=== PATIENT | female | born 1930 | race Caucasian/White ===

== ENCOUNTER 2016-10-25 05:11 | Emergency (ER) | payer OTHER, BC ==
[~2016-10-25] VITALS: Ht 152.4 cm; Wt 58.7 kg
[~2016-10-25 05:11] MED LIST: ATIVAN1 MG PO; AUGMENTIN875 MG PO; AZOPT 1% O200 DROP/1 RIGHT EYE; CITALOPRAM HBR20 MG; LEVAQUIN750 MG PO; MELOXICAM7.5 MG; METOPROLOL SUCC50 MG; PREVACID15 MG PO; REGLAN10 MG; SERTRALINE HCL25 MG PO; VITAMIN B-6100 MG PO; VITAMIN D250000 UNIT PO; VITAMIN D31000 UNIT PO
[2016-10-25 06:13] LABS: EOSINOPHIL (%) 0.9 % (0-5); EOSINOPHIL COUNT 0.1 K/uL (0-0.3); HEMATOCRIT 37.6 % (36.0-46.0); IMMATURE GRANULOCYTE (%) 0.4 % (0.0-0.7); INSTRUMENT ABS NEUTROPHIL CT 4.4 K/uL; LYMPHOCYTE COUNT 2.6 K/uL (1.0-2.8); MCHC 33.5 G/DL (30.0-36.0); MCV 92.4 FL (83-99); MEAN PLAT.VOLUME 9.6 uM^3 (9.5-12.4); MONOCYTE (%) 11.9 % (3-12); NEUTROPHIL (%) 54.6 % (45-76); NEUTROPHIL COUNT 4.4 K/uL (1.8-6.4); PLATELET COUNT 276 K/uL (156-360); RBC DIS.WIDTH-CV 12.9 % (11.8-14.6); RBC DIS.WIDTH-SD 43.9 % (39-53); RED BLOOD COUNT 4.07 M/uL (3.80-5.20)
[2016-10-25 06:19] LABS: CHLORIDE 99 mEq/L (99-109); POTASSIUM 4.2 mEq/L (3.7-5.4); SODIUM 134 mEq/L (136-147)
[2016-10-25 06:21] LABS: GLUCOSE 98 mg/dL (70-99)
[2016-10-25 06:23] LABS: ANION GAP 10 MEQ/L (2-14); TOTAL BILIRUBIN 0.8 mg/dL (0.0-1.0)
[2016-10-25 06:25] LABS: ALKALINE PHOSPHATASE 81 IU/L (3-129); GFR ESTIMATE (CALCULATED) > 59 mL/min/
[2016-10-25 06:26] LABS: UREA NITROGEN (BUN) 13 mg/dL (9-23)
[2016-10-25 06:28] LABS: LIPASE 25 U/L (1.0-51.0)
[2016-10-25] MEDS ORDERED: KRISTALOSE10 GM PO (06:45)
[2016-10-25] MEDS ORDERED: FLAGYL500 MG PO (06:45)
[2016-10-25] MEDS ORDERED: CIPRO500 MG PO (06:45)
[2016-10-25 06:59] VITALS: BP 182/88
== END 2016-10-25 07:10 | disposition home or self-care (01) ==
LOC: EME 05:11
PROVIDERS: Emergency Medicine
DX: K59.00 Constipation, unspecified (principal); K52.9 Noninfective gastroenteritis and colitis, unspecified; K64.4 Residual hemorrhoidal skin tags; F03.90 Unspecified dementia, unspecified severity, without behavioral disturbance, psychotic disturbance, mood disturbance, and anxiety; H40.9 Unspecified glaucoma; I10 Essential (primary) hypertension; K21.9 Gastro-esophageal reflux disease without esophagitis; Z86.73 Personal history of transient ischemic attack (TIA), and cerebral infarction without residual deficits; Z87.891 Personal history of nicotine dependence
CPT/HCPCS: 74176; 80053; 83690; 85025; 99281; 99283

== ENCOUNTER 2016-11-01 04:47 | Emergency (ER) | payer OTHER, BC ==
[~2016-11-01] VITALS: Ht 152.4 cm; Wt 58.8 kg
[~2016-11-01 04:47] MED LIST changes: +CIPRO500 MG PO; +FLAGYL500 MG PO; +KRISTALOSE10 GM PO
[2016-11-01 05:53] LABS: MCH 31.1 PG (29.0-34.0); MCHC 33.1 G/DL (30.0-36.0); MEAN PLAT.VOLUME 9.3 uM^3 (9.5-12.4); PLATELET COUNT 319 K/uL (156-360); RBC DIS.WIDTH-CV 13.6 % (11.8-14.6); RBC DIS.WIDTH-SD 46.7 % (39-53); RED BLOOD COUNT 4.15 M/uL (3.80-5.20); WHITE BLOOD COUNT 8.7 K/uL (4.1-10.2)
[2016-11-01 06:03] LABS: CHLORIDE 108 mEq/L (99-109); POTASSIUM 4.7 mEq/L (3.7-5.4); SODIUM 137 mEq/L (136-147)
[2016-11-01 06:05] LABS: GLUCOSE 77 mg/dL (70-99)
[2016-11-01 06:06] LABS: ANION GAP 7 MEQ/L (2-14)
[2016-11-01 06:09] LABS: ALKALINE PHOSPHATASE 75 IU/L (3-129); GFR ESTIMATE (CALCULATED) 56 mL/min/
[2016-11-01 06:10] LABS: UREA NITROGEN (BUN) 16 mg/dL (9-23)
[2016-11-01 06:11] LABS: TOTAL BILIRUBIN 0.4 mg/dL (0.0-1.0)
[2016-11-01 06:12] LABS: LIPASE 40 U/L (1.0-51.0)
[2016-11-01 07:23] VITALS: BP 165/71
== END 2016-11-01 07:23 | disposition home or self-care (01) ==
LOC: EME 04:47
PROVIDERS: Emergency Medicine
DX: R19.7 Diarrhea, unspecified (principal); I11.0 Hypertensive heart disease with heart failure; I50.9 Heart failure, unspecified; K21.9 Gastro-esophageal reflux disease without esophagitis; F03.90 Unspecified dementia, unspecified severity, without behavioral disturbance, psychotic disturbance, mood disturbance, and anxiety; H40.9 Unspecified glaucoma; F41.9 Anxiety disorder, unspecified; Z86.73 Personal history of transient ischemic attack (TIA), and cerebral infarction without residual deficits; Z90.49 Acquired absence of other specified parts of digestive tract; Z87.891 Personal history of nicotine dependence
CPT/HCPCS: 74022; 74176; 80053; 81003; 83605; 83690; 85027; 99281; 99284; J7030

== ENCOUNTER 2016-12-22 00:15 | Emergency (ER) | payer OTHER, BC ==
[~2016-12-22] VITALS: Ht 152.4 cm; Wt 57.9 kg
[2016-12-22 02:09] LABS: EOSINOPHIL (%) 0.9 % (0-5); EOSINOPHIL COUNT 0.1 K/uL (0-0.3); HEMATOCRIT 38.9 % (36.0-46.0); IMMATURE GRANULOCYTE (%) 0.1 % (0.0-0.7); INSTRUMENT ABS NEUTROPHIL CT 3.5 K/uL; LYMPHOCYTE COUNT 2.3 K/uL (1.0-2.8); MCHC 33.4 G/DL (30.0-36.0); MCV 92.8 FL (83-99); MEAN PLAT.VOLUME 9.2 uM^3 (9.5-12.4); MONOCYTE (%) 12.3 % (3-12); MONOCYTE COUNT 0.8 K/uL (0-0.8); NEUTROPHIL (%) 52.3 % (45-76); NEUTROPHIL COUNT 3.5 K/uL (1.8-6.4); PLATELET COUNT 289 K/uL (156-360); RBC DIS.WIDTH-CV 12.9 % (11.8-14.6); RBC DIS.WIDTH-SD 43.8 % (39-53); RED BLOOD COUNT 4.19 M/uL (3.80-5.20); WHITE BLOOD COUNT 6.7 K/uL (4.1-10.2)
[2016-12-22 02:14] LABS: ADD MIUA? NO; BILIRUBIN NEGATIVE; BLOOD NEGATIVE; COLOR STRAW ((YELLOW)); GLUCOSE (STRIP) NEGATIVE; KETONES NEGATIVE; LEUKOCYTES NEGATIVE; NITRITE NEGATIVE; PROTEIN (STRIP) NEGATIVE; SPECIFIC GRAVITY 1.005 (1.000-1.030); UCUL ADDED? NO; UROBILINOGEN 0.2 MG/DL (0.2-1.0)
[2016-12-22 02:17] LABS: CHLORIDE 104 mEq/L (99-109); POTASSIUM 4.6 mEq/L (3.7-5.4); SODIUM 137 mEq/L (136-147)
[2016-12-22 02:19] LABS: GLUCOSE 99 mg/dL (70-99)
[2016-12-22 02:20] LABS: ANION GAP 9 MEQ/L (2-14)
[2016-12-22 02:21] LABS: TOTAL BILIRUBIN 0.8 mg/dL (0.0-1.0)
[2016-12-22 02:22] LABS: ALKALINE PHOSPHATASE 79 IU/L (3-129)
[2016-12-22 02:23] LABS: GFR ESTIMATE (CALCULATED) > 59 mL/min/
[2016-12-22 02:24] LABS: UREA NITROGEN (BUN) 14 mg/dL (9-23)
[2016-12-22 02:26] LABS: LIPASE 29 U/L (1.0-51.0)
[2016-12-22 04:30] VITALS: BP 170/71
== END 2016-12-22 04:33 | disposition home or self-care (01) ==
LOC: EME 00:15
PROVIDERS: Emergency Medicine
DX: R19.7 Diarrhea, unspecified (principal); R10.9 Unspecified abdominal pain; I10 Essential (primary) hypertension; K21.9 Gastro-esophageal reflux disease without esophagitis; F03.90 Unspecified dementia, unspecified severity, without behavioral disturbance, psychotic disturbance, mood disturbance, and anxiety; F41.9 Anxiety disorder, unspecified; Z87.891 Personal history of nicotine dependence; Z86.73 Personal history of transient ischemic attack (TIA), and cerebral infarction without residual deficits
CPT/HCPCS: 74177; 80053; 81003; 83690; 85025; 99281; 99285

== ENCOUNTER 2017-05-12 10:14 | Emergency (ER) | payer OTHER, BC ==
[~2017-05-12] VITALS: Ht 157.5 cm; Wt 60.3 kg
[2017-05-12 11:27] LABS: HEMATOCRIT 38.4 % (36.0-46.0); HEMOGLOBIN 13.4 G/DL (11.9-15.5); MCH 31.8 PG (29.0-34.0); MCHC 34.9 G/DL (30.0-36.0); MCV 91.2 FL (83-99); PLATELET COUNT 341 K/uL (156-360); RBC DIS.WIDTH-CV 12.9 % (11.8-14.6); RBC DIS.WIDTH-SD 42.4 % (39-53); RED BLOOD COUNT 4.21 M/uL (3.80-5.20); WHITE BLOOD COUNT 17.6 K/uL (4.1-10.2)
[2017-05-12 11:36] LABS: CHLORIDE 99 mEq/L (99-109); POTASSIUM 3.9 mEq/L (3.7-5.4); SODIUM 134 mEq/L (136-147)
[2017-05-12 11:37] LABS: GLUCOSE 123 mg/dL (70-99)
[2017-05-12 11:41] LABS: CREATININE 0.8 mg/dL (0.6-1.3); GFR ESTIMATE (CALCULATED) > 59 mL/min/
[2017-05-12 11:42] LABS: UREA NITROGEN (BUN) 24 mg/dL (9-23)
[2017-05-12] MEDS ORDERED: TYLENOL WITH C1 EACH PO (16:38)
[2017-05-12 18:40] VITALS: BP 128/68
[2017-05-13] MEDS ORDERED: LORAZEPAM1 MG PO (01:47)
[2017-05-13] MEDS ORDERED: ASCORBIC ACID100 MG PO (01:51)
[2017-05-13] MEDS ORDERED: ALEVE220 MG PO (01:51)
[2017-05-13] MEDS ORDERED: PROBIOTIC1 EAC5 PO (01:52)
[2017-05-13] MEDS ORDERED: KRILL OIL500 MG PO (01:53)
[2017-05-13] MEDS ORDERED: MULTIVITAMIN1 EAC2 PO (01:54)
[2017-05-13] MEDS ORDERED: VITAMIN K240 MCG PO (01:55)
== END 2017-05-12 18:41 | disposition home or self-care (01) ==
LOC: EME 10:14
PROVIDERS: Physician Assistant
DX: S42.291A Other displaced fracture of upper end of right humerus, initial encounter for closed fracture (principal); S42.211A Unspecified displaced fracture of surgical neck of right humerus, initial encounter for closed fracture; M25.551 Pain in right hip; S00.83XA Contusion of other part of head, initial encounter; S40.011A Contusion of right shoulder, initial encounter; S70.01XA Contusion of right hip, initial encounter; S80.02XA Contusion of left knee, initial encounter; S80.01XA Contusion of right knee, initial encounter; W19.XXXA Unspecified fall, initial encounter; Y92.002 Bathroom of unspecified non-institutional (private) residence as the place of occurrence of the external cause; R29.6 Repeated falls; Z91.81 History of falling; F03.90 Unspecified dementia, unspecified severity, without behavioral disturbance, psychotic disturbance, mood disturbance, and anxiety; K57.30 Diverticulosis of large intestine without perforation or abscess without bleeding; I10 Essential (primary) hypertension; Z86.73 Personal history of transient ischemic attack (TIA), and cerebral infarction without residual deficits; Z87.891 Personal history of nicotine dependence
CPT/HCPCS: 70450; 73030; 73502; 73700; 80048; 81003; 85027; 93005; 97530 GO; G8978 GP CM; G8979 GP CK

== ENCOUNTER 2017-05-12 22:48 | Inpatient (IN) | payer OTHER, BC ==
[~2017-05-12] VITALS: Ht 149.9 cm; Wt 63.8 kg
[~2017-05-12 22:48] MED LIST changes: +TYLENOL WITH C1 EACH PO
[2017-05-12 23:53] LABS: HEMATOCRIT 32.4 % (36.0-46.0); MCHC 34.6 G/DL (30.0-36.0); MCV 92.6 FL (83-99); PLATELET COUNT 303 K/uL (156-360); RBC DIS.WIDTH-CV 13.2 % (11.8-14.6); RBC DIS.WIDTH-SD 44.5 % (39-53); WHITE BLOOD COUNT 13.1 K/uL (4.1-10.2)
[2017-05-12 23:57] LABS: HEMOGLOBIN 11.2 G/DL (11.9-15.5)
[2017-05-13 00:01] LABS: TROP-I INTERPRETATION NEGATIVE; TROPONIN-I 0.03 ng/mL (0.0-0.30)
[2017-05-13 00:05] LABS: CHLORIDE 99 mEq/L (99-109); POTASSIUM 3.8 mEq/L (3.7-5.4); SODIUM 133 mEq/L (136-147)
[2017-05-13 00:07] LABS: GLUCOSE 123 mg/dL (70-99)
[2017-05-13 00:11] LABS: CREATININE 0.8 mg/dL (0.6-1.3); GFR ESTIMATE (CALCULATED) > 59 mL/min/
[2017-05-13 00:28] LABS: UREA NITROGEN (BUN) 33 mg/dL (9-23)
[2017-05-13 01:28] LABS: CREATINE KINASE 992 IU/L (1-294); TOTAL CK 992 IU/L (1-294)
[2017-05-13 01:34] LABS: CK-MB 7.6 ng/mL (0.0-4.9); CKMB RELATIVE INDEX 0.8 (0.0-3.9)
[2017-05-13] MEDS ORDERED: LORAZEPAM1 MG PO (01:47)
[2017-05-13] MEDS ORDERED: ASCORBIC ACID100 MG PO (01:51)
[2017-05-13] MEDS ORDERED: ALEVE220 MG PO (01:51)
[2017-05-13] MEDS ORDERED: PROBIOTIC1 EAC5 PO (01:52)
[2017-05-13] MEDS ORDERED: KRILL OIL500 MG PO (01:53)
[2017-05-13] MEDS ORDERED: MULTIVITAMIN1 EAC2 PO (01:54)
[2017-05-13] MEDS ORDERED: VITAMIN K240 MCG PO (01:55)
[2017-05-13 07:01] LABS: APPEARANCE CLOUDY ((CLEAR)); BILIRUBIN NEGATIVE; BLOOD NEGATIVE; COLOR YELLOW ((YELLOW)); GLUCOSE (STRIP) NEGATIVE; KETONES 20; LEUKOCYTES LARGE; NITRITE NEGATIVE; PROTEIN (STRIP) 30; SPECIFIC GRAVITY 1.023 (1.000-1.030); UROBILINOGEN 0.2 MG/DL (0.2-1.0)
[2017-05-13 07:13] LABS: BACTERIA RARE /HPF; EPITHELIAL CELLS 2+ /HPF; MUCUS TRACE /LPF; UCUL ADDED? YES; WHITE BLOOD CELLS TNTC /HPF (0-5)
[2017-05-13 15:22] VITALS: BP 151/70
[2017-05-13 16:25] VITALS: BP 152/66
[2017-05-13 19:24] VITALS: BP 123/60
[2017-05-13 23:32] VITALS: BP 134/60
[2017-05-14] VITALS (7 sets, daily range): BP systolic 114–167; BP diastolic 61–98
[2017-05-14 06:00] LABS: CHLORIDE 101 MEQ/L (99-109); CREATININE 0.5 MG/DL (0.6-1.3); GFR ESTIMATE (CALCULATED) > 59 mL/min/; GLUCOSE 97 mg/dL (70-99); POTASSIUM 4.2 MEQ/L (3.7-5.4); SODIUM 133 MEQ/L (136-147); UREA NITROGEN (BUN) 16 mg/dL (9-23)
[2017-05-14 06:56] LABS: HEMOGLOBIN 10.4 G/DL (11.9-15.5); MCHC 33.5 G/DL (30.0-36.0); MCV 92.3 FL (83-99); PLATELET COUNT 329 K/uL (156-360); RBC DIS.WIDTH-CV 13.2 % (11.8-14.6); RBC DIS.WIDTH-SD 43.8 % (39-53); RED BLOOD COUNT 3.36 M/uL (3.80-5.20); WHITE BLOOD COUNT 13.5 K/uL (4.1-10.2)
[2017-05-14 11:22] LABS: CREATINE KINASE 709 IU/L (1-294)
[2017-05-15 03:51] VITALS: BP 151/65
[2017-05-15 04:39] LABS: BASOPHIL (%) 0.2 % (0-1); EOSINOPHIL (%) 1.8 % (0-5); EOSINOPHIL COUNT 0.2 K/uL (0-0.3); HEMATOCRIT 29.4 % (36.0-46.0); HEMOGLOBIN 10.1 G/DL (11.9-15.5); IMMATURE GRANULOCYTE (%) 1.3 % (0.0-0.7); LYMPHOCYTE COUNT 2.7 K/uL (1.0-2.8); MCH 31.7 PG (29.0-34.0); MCHC 34.4 G/DL (30.0-36.0); MCV 92.2 FL (83-99); MONOCYTE (%) 11.8 % (3-12); MONOCYTE COUNT 1.3 K/uL (0-0.8); NEUTROPHIL (%) 60.9 % (45-76); NEUTROPHIL COUNT 6.9 K/uL (1.8-6.4); PLATELET COUNT 345 K/uL (156-360); RBC DIS.WIDTH-CV 13.5 % (11.8-14.6); RBC DIS.WIDTH-SD 45.1 % (39-53); RED BLOOD COUNT 3.19 M/uL (3.80-5.20); WHITE BLOOD COUNT 11.3 K/uL (4.1-10.2)
[2017-05-15 04:51] LABS: CHLORIDE 102 mEq/L (99-109); POTASSIUM 4.8 mEq/L (3.7-5.4); SODIUM 135 mEq/L (136-147)
[2017-05-15 04:53] LABS: GLUCOSE 104 mg/dL (70-99)
[2017-05-15 04:57] LABS: CREATININE 0.6 mg/dL (0.6-1.3); GFR ESTIMATE (CALCULATED) > 59 mL/min/
[2017-05-15 04:58] LABS: UREA NITROGEN (BUN) 12 mg/dL (9-23)
[2017-05-15 08:51] VITALS: BP 170/74
[2017-05-15 12:16] VITALS: BP 170/70
[2017-05-15 16:07] VITALS: BP 146/78
[2017-05-15 19:34] VITALS: BP 115/53
[2017-05-15 23:57] VITALS: BP 141/64
[2017-05-16 04:18] VITALS: BP 184/84
[2017-05-16 05:43] LABS: BASOPHIL (%) 0.3 % (0-1); EOSINOPHIL (%) 2.4 % (0-5); EOSINOPHIL COUNT 0.2 K/uL (0-0.3); HEMATOCRIT 32.3 % (36.0-46.0); HEMOGLOBIN 10.8 G/DL (11.9-15.5); IMMATURE GRANULOCYTE (%) 1.9 % (0.0-0.7); LYMPHOCYTE (%) 21.7 % (15-42); LYMPHOCYTE COUNT 2.2 K/uL (1.0-2.8); MCH 31.3 PG (29.0-34.0); MCHC 33.4 G/DL (30.0-36.0); MCV 93.6 FL (83-99); MONOCYTE (%) 15.3 % (3-12); MONOCYTE COUNT 1.6 K/uL (0-0.8); NEUTROPHIL (%) 58.4 % (45-76); NEUTROPHIL COUNT 5.9 K/uL (1.8-6.4); PLATELET COUNT 376 K/uL (156-360); RBC DIS.WIDTH-CV 13.8 % (11.8-14.6); RBC DIS.WIDTH-SD 46.7 % (39-53); RED BLOOD COUNT 3.45 M/uL (3.80-5.20); WHITE BLOOD COUNT 10.2 K/uL (4.1-10.2)
[2017-05-16 07:26] VITALS: BP 171/72
[2017-05-16] MEDS ORDERED: LISINOPRIL20 MG PO (10:57)
[2017-05-16] MEDS ORDERED: POLYETHYLENE GL17 GM PO (10:58)
[2017-05-16] MEDS ORDERED: DOCUSATE SODIU100 MG PO (10:58)
[2017-05-16] MEDS ORDERED: OXYCODONE HCL5 MG PO (10:58)
[2017-05-16 11:20] VITALS: BP 106/51
== END 2017-05-16 13:59 | DRG 563 ==
LOC: EME → EDBD 22:48 → 3EAST 05-13 04:18 → EDOF 05-13 04:18 → ENRESERV 05-13 04:20 → 3EAST 05-13 14:41
PROVIDERS: Emergency Medicine; Hospitalist; Internal Medicine
DX: S42.201A Unspecified fracture of upper end of right humerus, initial encounter for closed fracture (principal); S20.211A Contusion of right front wall of thorax, initial encounter; S80.02XA Contusion of left knee, initial encounter; W18.30XA Fall on same level, unspecified, initial encounter; Y92.002 Bathroom of unspecified non-institutional (private) residence as the place of occurrence of the external cause; I44.1 Atrioventricular block, second degree; N39.0 Urinary tract infection, site not specified; F03.90 Unspecified dementia, unspecified severity, without behavioral disturbance, psychotic disturbance, mood disturbance, and anxiety; I10 Essential (primary) hypertension; K21.9 Gastro-esophageal reflux disease without esophagitis; F41.9 Anxiety disorder, unspecified; H40.9 Unspecified glaucoma; R26.81 Unsteadiness on feet; M25.551 Pain in right hip; R29.6 Repeated falls; Z86.73 Personal history of transient ischemic attack (TIA), and cerebral infarction without residual deficits; Z60.2 Problems related to living alone
CPT/HCPCS: 70450; 71045; 71046; 73030; 73502; 73700; 80048; 80048 91; 81003; 82550; 82553; 84484; 85025; 85027; 87086; 93005; 94799; 97530 GO; 99281; 99285; G8978 GP CM; G8979 GP CK; J0696; J1644; J7030

== ENCOUNTER 2017-08-18 02:45 | Emergency (ER) | payer OTHER, BC ==
[~2017-08-18] VITALS: Ht 152.4 cm; Wt 76.3 kg
[~2017-08-18 02:45] MED LIST changes: +ALEVE220 MG PO; +ASCORBIC ACID100 MG PO; +DOCUSATE SODIU100 MG PO; +KRILL OIL500 MG PO; +LISINOPRIL20 MG PO; +LORAZEPAM1 MG PO; +MULTIVITAMIN1 EAC2 PO; +OXYCODONE HCL5 MG PO; +POLYETHYLENE GL17 GM PO; +PROBIOTIC1 EAC5 PO; +VITAMIN K240 MCG PO
[2017-08-18 03:20] LABS: BASOPHIL (%) 0.4 % (0-1); EOSINOPHIL (%) 2.7 % (0-5); EOSINOPHIL COUNT 0.2 K/uL (0-0.3); HEMATOCRIT 35.4 % (36.0-46.0); HEMOGLOBIN 12.3 G/DL (11.9-15.5); IMMATURE GRANULOCYTE (%) 0.1 % (0.0-0.7); LYMPHOCYTE (%) 36.7 % (15-42); MCH 30.5 PG (29.0-34.0); MCHC 34.7 G/DL (30.0-36.0); MCV 87.8 FL (83-99); MONOCYTE (%) 11.2 % (3-12); MONOCYTE COUNT 0.9 K/uL (0-0.8); NEUTROPHIL (%) 48.9 % (45-76); PLATELET COUNT 336 K/uL (156-360); RBC DIS.WIDTH-CV 14.3 % (11.8-14.6); RBC DIS.WIDTH-SD 46.5 % (39-53); RED BLOOD COUNT 4.03 M/uL (3.80-5.20); WHITE BLOOD COUNT 8.3 K/uL (4.1-10.2)
[2017-08-18 03:31] LABS: CHLORIDE 97 mEq/L (99-109); POTASSIUM 3.9 mEq/L (3.7-5.4); SODIUM 132 mEq/L (136-147)
[2017-08-18 03:33] LABS: GLUCOSE 100 mg/dL (70-99)
[2017-08-18 03:37] LABS: CREATININE 0.7 mg/dL (0.6-1.3); GFR ESTIMATE (CALCULATED) > 59 mL/min/; UREA NITROGEN (BUN) 11 mg/dL (9-23)
[2017-08-18 03:45] LABS: TROP-I INTERPRETATION NEGATIVE; TROPONIN-I 0.01 ng/mL (0.0-0.30)
[2017-08-18 04:56] LABS: APPEARANCE CLEAR ((CLEAR)); BILIRUBIN NEGATIVE; BLOOD NEGATIVE; COLOR COLORLESS ((YELLOW)); GLUCOSE (STRIP) NEGATIVE; KETONES NEGATIVE; LEUKOCYTES NEGATIVE; NITRITE NEGATIVE; PROTEIN (STRIP) NEGATIVE; SPECIFIC GRAVITY 1.003 (1.000-1.030); UCUL ADDED? NO; UROBILINOGEN 0.2 MG/DL (0.2-1.0)
[2017-08-18 07:06] VITALS: BP 175/83
== END 2017-08-18 07:00 | disposition home or self-care (01) ==
LOC: EME 02:45
PROVIDERS: Emergency Medicine
DX: R06.00 Dyspnea, unspecified (principal); I10 Essential (primary) hypertension; K21.9 Gastro-esophageal reflux disease without esophagitis; F41.9 Anxiety disorder, unspecified; F03.90 Unspecified dementia, unspecified severity, without behavioral disturbance, psychotic disturbance, mood disturbance, and anxiety; M41.9 Scoliosis, unspecified; Z87.891 Personal history of nicotine dependence; Z86.73 Personal history of transient ischemic attack (TIA), and cerebral infarction without residual deficits
CPT/HCPCS: 71046; 80048; 81003; 84484; 85025; 87502; 99281; 99284

== ENCOUNTER 2017-10-28 02:13 | Emergency (ER) | payer OTHER, BC ==
[~2017-10-28] VITALS: Ht 152.4 cm; Wt 53.9 kg
[2017-10-28 03:27] LABS: HEMATOCRIT 35.1 % (36.0-46.0); MCH 30.3 PG (29.0-34.0); MCHC 34.2 G/DL (30.0-36.0); MCV 88.6 FL (83-99); PLATELET COUNT 322 K/uL (156-360); RBC DIS.WIDTH-CV 13.9 % (11.8-14.6); RBC DIS.WIDTH-SD 44.8 % (39-53); RED BLOOD COUNT 3.96 M/uL (3.80-5.20); WHITE BLOOD COUNT 7.6 K/uL (4.1-10.2)
[2017-10-28 03:36] LABS: ALBUMIN 3.7 g/dL (3.2-4.8); CHLORIDE 98 mEq/L (99-109); POTASSIUM 3.9 mEq/L (3.7-5.4); SODIUM 134 mEq/L (136-147)
[2017-10-28 03:38] LABS: GLUCOSE 97 mg/dL (70-99); TOTAL PROTEIN 6.4 g/dL (6.4-8.3)
[2017-10-28 03:40] LABS: TOTAL BILIRUBIN 0.5 mg/dL (0.0-1.0)
[2017-10-28 03:42] LABS: ALKALINE PHOSPHATASE 124 IU/L (3-129); CREATININE 0.7 mg/dL (0.6-1.3); GFR ESTIMATE (CALCULATED) > 59 mL/min/
[2017-10-28 03:43] LABS: UREA NITROGEN (BUN) 11 mg/dL (9-23)
[2017-10-28 03:44] LABS: AST (GOT) 22 IU/L (2-34)
[2017-10-28 03:45] LABS: ALT (GPT) 14 IU/L (3-49); LIPASE 35 U/L (1.0-51.0)
[2017-10-28 04:17] LABS: APPEARANCE CLEAR ((CLEAR)); BILIRUBIN NEGATIVE; BLOOD NEGATIVE; COLOR STRAW ((YELLOW)); GLUCOSE (STRIP) NEGATIVE; KETONES NEGATIVE; LEUKOCYTES TRACE; NITRITE NEGATIVE; PROTEIN (STRIP) NEGATIVE; SPECIFIC GRAVITY 1.004 (1.000-1.030); UROBILINOGEN 0.2 MG/DL (0.2-1.0)
[2017-10-28 04:24] LABS: BACTERIA 2+ /HPF; EPITHELIAL CELLS RARE /HPF; HYALINE CASTS 0-5 /LPF; MUCUS NONE SEEN /LPF; RED BLOOD CELLS 0-5 /HPF (0-5); UCUL ADDED? YES; WHITE BLOOD CELLS 0-5 /HPF (0-5)
[2017-10-28] MEDS ORDERED: BENTYL20 MG PO (05:28)
[2017-10-28] MEDS ORDERED: KEFLEX500 MG PO (05:28)
[2017-10-28 08:08] VITALS: BP 149/69
== END 2017-10-28 08:11 | disposition home or self-care (01) ==
LOC: EME → EDBD 02:13 → EME 02:13
PROVIDERS: Emergency Medicine
DX: K52.9 Noninfective gastroenteritis and colitis, unspecified (principal); N30.00 Acute cystitis without hematuria; M54.5 Low back pain; G89.29 Other chronic pain; I11.0 Hypertensive heart disease with heart failure; I50.9 Heart failure, unspecified; F03.90 Unspecified dementia, unspecified severity, without behavioral disturbance, psychotic disturbance, mood disturbance, and anxiety; K21.9 Gastro-esophageal reflux disease without esophagitis; F41.9 Anxiety disorder, unspecified; Z87.891 Personal history of nicotine dependence; Z86.73 Personal history of transient ischemic attack (TIA), and cerebral infarction without residual deficits
CPT/HCPCS: 72132; 74177; 80053; 81003; 83690; 85027; 87086; 99281; 99285; J7030